=== PATIENT | male | born 2005 | race African-American/Black ===

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

== ENCOUNTER 2025-01-05 12:54 | Outpatient (AMB) | payer BC, MEDICAID, SELFPAY ==
--- OUTSIDE RECORDS SUMMARY | 2025-01-05 12:57 | XMS_ITS | Clinical Summary ---
Author Organization [facility] sp[facility] Address [address] [place] [address] Phone Care Team Providers Care Lute Packer Or Applier Name Role Phone Dao Dunlap MD Primary Care Provider Dao Dunlap MD Unavailable [phone] Social History Tobacco Use Types Packs/Day Years Used Date Smoking Tobacco: Never Assessed Sex and Gender Information Value Date Recorded Sex Assigned at Not on file Legal Sex Male 1:59 AM EDT Gender Identity Not on file Sexual Orientation Not on file Last Filed Vital Signs Vital Sign Reading Time Taken Comments Blood Pressure 116/70 04/29/2022 2:28 PM EST Pulse 94 04/29/2022 2:28 PM EST Temperature - - Respiratory Rate - - Oxygen Saturation - - Inhaled Oxygen Concentration - - Weight 56.5 kg (124 lb 9 oz) 04/29/2022 2:28 PM EST Height 165.5 cm (5' 5.16 ) 04/29/2022 2:28 PM ES T Body Mass Index 20.63 04/29/2022 2:28 PM EST Body Mass Index Percentile 46.60% 04/29/2022 2:2 8 PM EST Growth Chart: CDC (Boys, 2-2 0 Years) Plan of Treatment Upcoming Encounters Date Type Department Care Team (Late st Contact Info) Description 05/04/2025 2:30 PM EST Office Visit [facility] [address] [place] [phone] Isaías Raphael MD, DMD [address] [facility] Department of Plastic&[place] [address] Health Maintenance Due Date Last Done Comments HIV Screening 2005 Meningococcal B Vaccine (1 of 2 - Standard) 2021 Hepatitis C Screening 11/04/2023 COVID-19 Vaccine ( - season) 2024 05/08/2022, 06/03/2021, 10/24/2020, Additional history exists Influenza Vaccine (#1) 2025 , 03/09/2020, 06/05/2019, Additional history exists DTaP/Tdap/Td Vaccines (7 - Td or Tdap) 11/26/2026 11/26/2016, 11/04/2009, 01/19/2007, Additional history exists Hepatitis B Vaccines Completed 05/12/2006, 03/11/2006, 01/05/2006 Pneumococcal Vaccine: Pediatrics (0 to 5 Years) and At-Risk Patients (6 to 49 Years) Aged Out 05/12/2006, 03/09/2006, 01/05/2006 No longer eligible based on patient's age to complete this topic HIB Vaccines Completed 01/19/2007, 04/17, 03/09/2006, Additional history exists IPV Vaccines Completed 11/04/2009, 04/17, 03/09/2006, Additional history exists MMR Vaccines Completed 11/04/2009, 2006 Varicella Vaccines Completed 11/04/2009, 2006 HPV Vaccines Completed 02/18/2018, 03/29/2017 Meningococcal Vaccine Completed 01/16/2022, 017 Hepatitis A Vaccines Aged Out No long er eligible based on patient's age to complete this topic Rotavirus Vaccines Aged Out No longer eligible based on patient's age to complete this topic Insurance [facility] [place] [employer] [place] Care Teams Lute Packer Or Applier Relationship Specialty Start Date End Date Dao Dunlap MD [address] [place] [id number] PCP - General 06/24/18 Dao Dunlap MD [address] [place] [id number] (work) PCP - Clinical PCP 06/24/18
--- OUTSIDE RECORDS SUMMARY | 2025-01-05 12:57 | XMS_ITS | Encounter Summary ---
Author Organization [facility] Address [address] [place] [phone] Phone Care Team Providers Care Manager Workers Compensation Name Role Phone Quinten Guallpa MD Primary Care Provider [phone] Encounter Details Date Type Department Care Team (Late st Contact Info) Description 03/07/2014 Documentation [facility] Family Medicine [address] [place] [address] Family Medicine, Physician [address], [place] [id number] Social History Tobacco Use Types Packs/Day Years Used Date Smoking Tobacco: Never Assessed Sex and Gender Information Value Date Recorded Sex Assigned at Not on file Legal Sex Male 4:55 PM EDT Gender Identity Not on file Sexual Orientation Not on file documented as of this encounter Plan of Treatment Not on file documented as of this encounter Visit Diagnoses Not on filedocumented in this encounter Care Teams Manager Workers Compensation Relationship Specialty Start Date End Date Quinten Guallpa MD [address] [place] [address] [place] [id number] PCP - General 12/25/16 11/09/22 documented as of this encounter
--- OUTSIDE RECORDS SUMMARY | 2025-01-05 12:57 | XMS_ITS | Encounter Summary ---
Author Organization [facility] Address [address] [place] [address] Care Team Providers Care Deputy Fire Chief Name Role Phone Shanna Huff NP Primary Care Provider [phone] Reason for Visit * Reason Onset Date Comments Ear Fullness 01/05/2025 Encounter Details Date Type Department Care Team ([facility] st Contact Info) Description 01/05/2025 Telephone [facility] [address] [place] [phone] Shanna Huff NP [address] [place] [address] Ear Fullness Social History Tobacco Use Types Packs/Day Years Used Date Smoking Tobacco: Never Smokeless Tobacco: Never Alcohol Use Standard Drinks/Week Comments Not Asked 0 (1 standard drink = 0.6 oz pur e alcohol) Sex and Gender Information Value Date Recorded Sex Assigned at Not on file Legal Sex Male 8:14 AM EST Gender Identity Not on file Sexual Orientation Not on file documented as of this encounter Progress Notes * Martha Treadwell LPN - 01/05/2025 12:38 PM EDT Spoke w jorge, was scratching ear with a scraper and thinks he may have popped something. Was also using debrox ear drops and proxide because he felt like there was something stuck in there No bleeding Doesn't sound muffled Uncomfortable Offered appt today pt declined Advised to go to urgent care Pt agrees w advice * Sarah Arthur - 01/05/2025 12:21 PM EDT Patient is having problem with his right ear. States he was scratching it yesterday and now it feels like it has a bubble in it he can not pop. He is not sure if he pushed wax down into ear and that is the cause. [phone] documented in this encounter Plan of Treatment Not on file documented as of this encounter Visit Diagnoses Not on filedocumented in this encounter Care Teams Deputy Fire Chief Relationship Specialty Start Date End Date Shanna Huff NP PCP - General Pediatrics 12/18/21 documented as of this encounter
[2025-01-05 13:26] VITALS: BP 102/64; PULSE 80; TEMP 37; O2SAT 98; BMI 23.6
--- NOTE | 2025-01-05 13:26 | MHC.OFFWIV ---
Intake Vital Signs 01/05/25 13:26 Height 5 ft 6 in Weight 146 lb BMI 23.6 BP 102/64 Blood Pressure Location Lt brachial Position Sitting Pulse 80 Pulse Source Pulse Oximeter Temp 98.6 F Temp Source Oral Pulse Oximetry (%) 98 Oxygen Delivery Method Room Air Intake Visit Reasons: [employer] RT ear pain Intake Note: pt presents in right ear pain Allergies No Known Allergies Allergy (Verified 01/05/25 13:28) Do you need a note to return to daycare/school/sports/work: No HPI HPI Comments History of Present Illness Details History - The patient is a 19-year-old male presenting with right ear pain. - The ear pain started yesterday following an attempt to scratch the ear. - Application of Debrox drops resulted in stinging. - The patient perceives a persistent bubble sensation, likely due to wax accumulation. - He has no discharge or bleeding. - He has no dizziness, FENG, fever, chills, cough, abd pain, n/v/d. Physical Exam General: Cooperative, healthy appearing, comfortable, no acute distress and well developed Head: Normal to inspection Ears: External ears normal bilaterally. No tragus or mastoid tenderness noted. Cerumen noted in the canal. TM's not visualized. Face and sinus: Normal facial exam. No TTP of the sinuses. Neck: Normal visual inspection. Full ROM. No lymphadenopathy noted. Respiratory: Normal respiratory effort and able to speak in complete sentences. Clear to auscultation bilaterally. No w/r/r noted. Cardiac: RRR, no m/r/g noted. Normal S1 and S2 noted. Skin: No rashes or lesions noted Neuro: Patient oriented x3 Patient was informed and verbally consented to the use of an ambient scribe for clinic note documentation during this visit. [facility] Social History Alcohol intake: never Review of Systems Const All systems reviewed & are unremarkable except as noted in HPI and below Physical Exam Vital Signs: Last Vital Signs Temp 98.6 F 01/05/25 13:26 Pulse 80 01/05/25 13:26 BP 102/64 01/05/25 13:26 Pulse Ox 98 01/05/25 13:26 Oxygen Delivery Method Room Air 01/05/25 13:26 BMI result Body Mass Index 23.6 Office Procedures Cerumen Removal From which ear canal was the cerumen removed: bilateral Removal: irrigation Notes: patient tolerated procedure well, no complications and ear canal clear [id number] Irrigation/Lavage Assessment & Plan Assessment & Plan (1) Right ear pain: Code(s): H92.01 - Otalgia, right ear (2) Cerumen impaction: Code(s): H61.20 - Impacted cerumen, unspecified ear Qualifiers: Laterality: bilateral Qualified Code(s): H61.23 - Impacted cerumen, bilateral Plan Most likely cerumen impaction Plan - Plan to irrigate the ears to remove wax and alleviate discomfort. - continue with debrox drops - avoid q-tips - follow up with PCP Orders: Orders AMB Cerumen Removal Today H61.23 - Impacted cerumen, bilateral Medications: Discontinued omeprazole Discontinued Reason: Patient Completed Course 40 mg PO DAILY 30 caps 0RF sucralfate Discontinued Reason: Patient Completed Course 1 g PO BID 20 tabs 0RF Coding Level of Care Code Est Pt Level 3 (15869) Diagnoses Right ear pain H92.01 Bilateral impacted cerumen H61.23 Laterality: bilateral CPT Codes Office Procedure - CPT: 03703-Pjx Irrigation/Lavage ([id number])
== END 2025-01-05 14:50 | disposition home or self-care (01) ==
PROVIDERS: PCP Nurse Practitioner Pediatrics; Visit Provider Physician Assistant Medical
DX: H92.01 Otalgia, right ear (principal); H61.23 Impacted cerumen, bilateral

== ENCOUNTER → 2025-01-05 12:54 | Outpatient (BNVA) | payer BC, MEDICAID, SELFPAY | PROVIDERS: PCP Nurse Practitioner Pediatrics; Visit Provider Physician Assistant Medical | DX: H61.23 Impacted cerumen, bilateral (principal) | CPT/HCPCS: 69209 ==